=== PATIENT | female | born 1955 | race Caucasian/White ===

== ENCOUNTER 2021-03-19 16:39 | Emergency (ER) | payer MEDICAID, OTHER ==
[~2021-03-19] VITALS: Ht 170.2 cm; Wt 54.5 kg
[2021-03-19 17:37] LABS: BASOPHILS # (AUTO) 0.1 X10'3 (0-0.2); BASOPHILS % (AUTO) 0.8 % (0-1); EOSINOPHILS % (AUTO) 0.5 % (0-6); HEMOGLOBIN 9.9 g/dl (12.0-16.0); LYMPHOCYTES # (AUTO) 1.7 X10'3 (1.1-4.8); LYMPHOCYTES % (AUTO) 25.3 % (21-51); MEAN CORPUSCULAR HEMOGLOBIN 28.1 PG (27.0-31.0); MEAN CORPUSCULAR HGB CONC 32.9 g/dL (33.0-36.5); MEAN CORPUSCULAR VOLUME 85.7 FL (78-98); MEAN PLATELET VOLUME 7.9 FL (7.4-10.4); MONOCYTES # (AUTO) 0.7 X10'3 (0-0.9); MONOCYTES % (AUTO) 9.5 % (2-12); NEUTROPHILS # (AUTO) 4.4 X10'3 (1.8-7.7); NEUTROPHILS % (AUTO) 63.9 % (42-75); PLATELET COUNT 310 X10'3 (140-440); RED CELL DISTRIBUTION WIDTH 23.3 % (11.5-14.5); WHITE BLOOD COUNT 6.9 X10'3 (4.5-11.0)
[2021-03-19 17:54] LABS: ALANINE AMINOTRANSFERASE 24 U/L (12-78); ALBUMIN 4.1 G/DL (3.4-5.0); ALBUMIN/GLOBULIN RATIO 1.1 (1.1-1.5); ALKALINE PHOSPHATASE 71 IU/L (46-116); ANION GAP 10 (8-16); ASPARTATE AMINO TRANSFERASE 21 U/L (10-37); BILIRUBIN,TOTAL 0.5 MG/DL (0.1-1.0); BLOOD UREA NITROGEN 23 MG/DL (7-18); BUN/CREATININE RATIO 21.1 (6.6-38.0); CALCIUM 9.6 MG/DL (8.5-10.1); CHLORIDE 105 MMOL/L (99-107); CREATININE 1.09 MG/DL (0.40-0.90); GLUCOSE 98 MG/DL (70-104); POTASSIUM 4.7 MMOL/L (3.5-5.1); SODIUM 141 MMOL/L (135-145); TOTAL CARBON DIOXIDE 25.8 MMOL/L (24-32); TOTAL PROTEIN 7.8 G/DL (6.4-8.2); eGFR 50 ML/MIN
[2021-03-19 17:59] LABS: ANISOCYTOSIS 3+; HYPOCHROMASIA 1+; PLATELET ESTIMATE NORMAL
[2021-03-19 18:01] LABS: ETHANOL < 0.010 GM/DL (0.0-0.010)
[2021-03-19 18:50] LABS: COLOR,URINE YELLOW (Yellow); GLUCOSE, URINE NEGATIVE (Neg); KETONES,URINE TRACE mg/dl (Neg); LEUKOCYTE ESTERASE ,URINE SMALL (Neg); NITRITES, URINE NEGATIVE (Neg); OCCULT BLOOD,URINE NEGATIVE (Neg); PH,URINE 5.5 (4.8-8.0); PROTEIN,URINE TRACE mg/dl (Neg); UROBILINOGEN,URINE 0.2 E.U/dL (0.2-1.0)
[2021-03-19 18:57] LABS: UA COLLECTION TYPE CLN CATCH MIDSTREAM
[2021-03-19 18:58] LABS: CLARITY,URINE SLIGHTLY CLOUDY (Clear)
[2021-03-19 18:59] LABS: BACTERIA,URINE FEW /HPF (Neg); RBC,URINE 0-2 /HPF (0-2); SQUAMOUS EPITHELIAL CELL,UR MODERATE /LPF (FEW); WBC,URINE 0-4 /HPF (0-4)
[2021-03-19 19:08] LABS: URINE AMPHETAMINE SCREEN NEGATIVE (Neg); URINE BARBITUATE SCREEN NEGATIVE (Neg); URINE BENZODIAZEPINES SCREEN NEGATIVE (Neg); URINE CANNABINOID SCREEN NEGATIVE (Neg); URINE COCAINE SCREEN NEGATIVE (Neg); URINE METHADONE SCREEN NEGATIVE (Neg); URINE OPIATE SCREEN NEGATIVE (Neg); URINE PHENCYCLIDINE SCREEN NEGATIVE (Neg)
--- NOTE | 2021-03-19 21:00 | NUR ---
PT SITTING ON BED OBSERVING PEOPLE WALK BY. GREEN SCRUBS HAVE BEEN DONNED.
--- NOTE | 2021-03-19 22:00 | NUR ---
PT HAS REQUESTED JUICE AND BEDSIDE COMMODE, REQUESTS FULFILLED
--- NOTE | 2021-03-19 23:00 | NUR ---
PT SITTING ON BED OBSERVING PEOPLE WALKING BY ROOM. PT COMPLIANT.
--- NOTE | 2021-03-20 | NUR ---
LIGHTS HAVE BEEN TURNED OFF IN ROOM SO PT CAN ATTEMPT TO SLEEP. PT HAS NO COMPLAINTS AT PRESENT.
--- NOTE | 2021-03-20 01:00 | NUR ---
PT REQUESTED NEW BLANKETS, REQUESTS FULFILLED.
--- NOTE | 2021-03-20 02:00 | NUR ---
PT IS SLEEPING COMFORTABLY. EQUAL RISE AND FALL OF CHEST
--- NOTE | 2021-03-20 06:44 | NUR ---
packet faxed to [facility]
--- NOTE | 2021-03-20 06:44 | NUR ---
pt up to [facility]. now sleeping in [facility]. no signs/symptoms of distress.
[2021-03-20 07:54] VITALS: BP 168/113
--- NOTE | 2021-03-20 07:59 | NUR ---
MOM CALLED TO DISCUSS MED RECONCILIATION. MOM STATES THE PATIENT WAS PICKED UP BY HER BROTHER ON 03/14 AFTER BEING IN A HOSPITAL IN [place], AND WAS DROPPED OFF AT HER HOUSE. STATES SHE BELIEVES PT WAS ON SEIZURE MEDICATION BUT HAS NOT TAKEN ANYTHING SINCE THAT TIME. STATES SHE HAS HAD X2 SEIZURES SINCE MOVING IN WITH HER. NO PCP SET UP IN THIS AREA AND FAMILY HAS NO RECORD OF MEDICAL HISTORY. HAS PRESCRIPTION FOR MULTI-VITAMIN AND FOLIC ACID. MOM STATES PT WAS POSITIVE FOR COVID DURING HOSPITALIZATION AT END OF DECEMBER. TESTED NEGATIVE ON TRANSFER TO ANOTHER FACILITY. MOM REPORTS PT FREQUENTLY WAS TALKING ABOUT LEAVING THE HOUSE AND TAKING THE BUS TO THE STORE, BUT BELIEVED SHE WAS IN [place]. MOM CALLED 911 WHEN PT GOT OUT OF CAR AT THE POST OFFICE AND TRIED TO WANDER AWAY. MOM UNABLE TO PHYSICALLY RESTRAIN PT IN CAR AND PT WAS WANDERING. PT WAS NOT PHYSICALLY AGGRESSIVE TOWARD ANYONE. PT HAS 4 KIDS THAT ARE ESTRANGED. MOM STATES THE PLAN IS FOR PT TO CONTINUE LIVING WITH HER AFTER DC.
[2021-03-20] MEDS ORDERED: acetaminophen 325mg tablet PO ONE (08:20)
--- NOTE | 2021-03-20 08:31 | NUR ---
Given breakfast tray.
--- NOTE | 2021-03-20 10:25 | NUR ---
PT RESTING QUIETLY, NO SIGNS/SYPMTOMS OF DISTRESS.
--- NOTE | 2021-03-20 12:08 | NUR ---
PT SITTING QUIETLY IN BED. LUNCH TRAY AT BEDSIDE.
--- NOTE | 2021-03-20 14:29 | NUR ---
PT RESTING QUIETLY IN BED.
[2021-03-20] MEDS ORDERED: acetaminophen 325mg tablet PO PRN (14:45)
[2021-03-20] MEDS ORDERED: thiamine 100mg tablet PO ONE (15:30)
[2021-03-20] MEDS ORDERED: folic acid 1mg tablet PO ONE (15:30)
--- NOTE | 2021-03-20 15:58 | NUR ---
SPOKE WITH PATIENTS MOM. MOM WILL COME PICK PT.
== END 2021-03-20 16:30 | disposition home or self-care (01) ==
LOC: ER 16:40
DX: U07.1 COVID-19 (principal); F29 Unspecified psychosis not due to a substance or known physiological condition
CPT/HCPCS: 36415; 80053; 80305; 80320; 81001; 84443; 85008; 85025; 87635; 99285; C9803

== ENCOUNTER 2024-03-12 16:37 | Emergency (ER) | payer MEDICARE, MEDICAID ==
[~2024-03-12] VITALS: Ht 170.2 cm; Wt 59.0 kg
[2024-03-12 16:47] VITALS: TEMP 97.6
[2024-03-12 19:25] VITALS: BP 126/98; PULSE 73; RESP 16; O2SAT 96
== END 2024-03-12 19:27 | disposition home or self-care (01) ==
LOC: ER 16:37
DX: S00.03XA Contusion of scalp, initial encounter (principal); F03.90 Unspecified dementia, unspecified severity, without behavioral disturbance, psychotic disturbance, mood disturbance, and anxiety; M19.90 Unspecified osteoarthritis, unspecified site; V78.4XXA Person boarding or alighting from bus injured in noncollision transport accident, initial encounter; Y93.89 Activity, other specified; Y92.89 Other specified places as the place of occurrence of the external cause; Y99.8 Other external cause status
CPT/HCPCS: 70450; 99284; A6258; A6402; A6449

== ENCOUNTER 2024-08-12 12:23 | Outpatient (CLI) | payer MEDICARE, MEDICAID ==
--- NOTE | 2024-08-12 19:01 | RADIOLOGY REPORT ---
EXAM: MR MRI UPPER EXTREMITY RIGHT INDICATION: 69 years old, Female; PAIN R SHOULDER. PAIN R SHOULDER TECHNIQUE: Multiplanar, multisequence MR images of the right shoulder were obtained in the absence of gadolinium contrast material. COMPARISON: None available at the time of dictation. FINDINGS: [CORACOACROMIAL ARCH]: Mild degenerative change of the acromioclavicular joint. Intact coracoclavicul ar ligaments. Intact coracoacromial ligaments. Mild amount of subacromial/subdeltoid bursal distentio n. [ROTATOR CUFF]: Intermediate to high signal intensity of the superior rotator cuff with partial artic ular sided suspected distal insertional tearing of the anterior infraspinatus. Likely partial articul ar sided tearing of the anterior fibers of the supraspinatus involving potentially up to 50 percent o f the thickness. Superimposed mild superior rotator cuff tendinosis. [BICEPS TENDON]: Intact without tenosynovitis. [LABRUM]: Intact. [CARTILAGE]: No measurable cartilage defect. [GLENOHUMERAL JOINT]: No joint effusion. No intra-articular body. Question slight thickening of the a xillary pouch. Correlate with clinical exam to exclude adhesive capsulitis. [BONES]: No acute fracture, osseous contusion, or aggressive focal osseous lesion. [MUSCLES]: Normal muscle bulk of the rotator cuff muscles. [NEUROVASCULAR/LYMPH NODES]: Normal. [OTHER]: Right breast implant. IMPRESSION: 1. Question slight thickening of the axillary pouch. Correlate with clinical exam to exclude adhesiv e capsulitis. 2. Intermediate to high signal intensity of the superior rotator cuff with partial articular sided rivers spected distal insertional tearing of the anterior infraspinatus. Likely partial articular sided tear ing of the anterior fibers of the supraspinatus involving potentially up to 50 percent of the thickne ss. Superimposed mild superior rotator cuff tendinosis. 3. Mild amount of subacromial/subdeltoid bursal distention.
== END 2024-08-12 23:59 | disposition home or self-care (01) ==
LOC: MRI02 12:23
PROVIDERS: ATTEND Nurse Practitioner Family
DX: M19.011 Primary osteoarthritis, right shoulder (principal); M25.511 Pain in right shoulder; M75.101 Unspecified rotator cuff tear or rupture of right shoulder, not specified as traumatic
CPT/HCPCS: 73221